=== PATIENT | female | born 1985 | race American Indian/Alaskan Native ===

== ENCOUNTER 2018-07-16 08:24 | Emergency (ER) | payer MEDICAID, OTHER ==
[2018-07-16 08:34] VITALS: BP 124/63
--- NOTE | 2018-07-16 10:11 | Emergency Department Report ---
ED General Adult HPI - General Chief complaint: Skin/Abscess/Foreign Body Stated complaint: SPIDER BITE/BACK Time Seen by Provider: 07/16/18 09:29 Source: patient Mode of arrival: Ambulatory Limitations: No Limitations - History of Present Illness Initial comments: Patient complains of a raised rash that appeared on her back this morning. Patient denies any wilderness contacts or fever. She states that the rash really itchy and at times painful. She states that she did have chickenpox as a child. She denies chest pain, shortness breath, or headache. -: Sudden Location: back Radiation: non-radiation Severity scale (0 -10): 3 Quality: dull Consistency: constant Improves with: none Worsens with: none Associated Symptoms: denies other symptoms Treatments Prior to Arrival: none - Related Data Previous Rx's Medication Instructions Recorded Last Taken Type Ibuprofen [Motrin] 800 mg PO TID PRN #20 tablet 02/18/13 Unknown Rx metroNIDAZOLE [Flagyl TAB] 500 mg PO BID #20 tablet 02/18/13 Unknown Rx Acetaminophen/Codeine [Tylenol 1 tab PO Q6H PRN #15 tab 07/16/18 Unknown Rx /Codeine # 3 tab] Acyclovir [Zovirax Tab] 400 mg PO Q8H #30 tab 07/16/18 Unknown Rx Sulfamethoxazole/Trimethoprim 2 each PO BID #28 tablet 07/16/18 Unknown Rx [Bactrim DS TAB] Allergies Allergy/AdvReac Type Severity Reaction Status Date / Time iron Allergy Rash Verified 07/16/18 08:25 ED Review of Systems ROS: Stated complaint: SPIDER BITE/BACK Other details as noted in HPI Comment: All other systems reviewed and negative Constitutional: denies: chills, fever Eyes: denies: eye pain, eye discharge, vision change ENT: denies: ear pain, throat pain Respiratory: denies: cough, shortness of breath, wheezing Cardiovascular: denies: chest pain, palpitations Endocrine: no symptoms reported Gastrointestinal: denies: abdominal pain, nausea, diarrhea Genitourinary: denies: urgency, dysuria, discharge Musculoskeletal: denies: back pain, joint swelling, arthralgia Skin: denies: rash, lesions Neurological: denies: headache, weakness, paresthesias Psychiatric: denies: anxiety, depression Hematological/Lymphatic: denies: easy bleeding, easy bruising ED Past Medical Hx - Past Medical History Previous Medical History?: No - Surgical History Past Surgical History?: Yes Additional Surgical History: KNEE - Social History Smoking Status: Never Smoker Substance Use Type: None - Medications Home Medications: Home Medications Medication Instructions Recorded Confirmed Last Taken Type Ibuprofen [Motrin] 800 mg PO TID PRN #20 tablet 02/18/13 Unknown Rx metroNIDAZOLE [Flagyl TAB] 500 mg PO BID #20 tablet 02/18/13 Unknown Rx Acetaminophen/Codeine [Tylenol 1 tab PO Q6H PRN #15 tab 07/16/18 Unknown Rx /Codeine # 3 tab] Acyclovir [Zovirax Tab] 400 mg PO Q8H #30 tab 07/16/18 Unknown Rx Sulfamethoxazole/Trimethoprim 2 each PO BID #28 tablet 07/16/18 Unknown Rx [Bactrim DS TAB] ED Physical Exam - General Limitations: No Limitations General appearance: alert, in no apparent distress - Head Head exam: Present: atraumatic, normocephalic - Eye Eye exam: Present: normal appearance, PERRL, EOMI - ENT ENT exam: Present: mucous membranes moist - Neck Neck exam: Present: normal inspection - Respiratory Respiratory exam: Present: normal lung sounds bilaterally. Absent: respiratory distress - Cardiovascular Cardiovascular Exam: Present: regular rate, normal rhythm. Absent: systolic murmur, diastolic murmur, rubs, gallop - Extremities Exam Extremities exam: Present: normal inspection - Back Exam Back exam: Present: normal inspection - Neurological Exam Neurological exam: Present: alert, oriented X3, CN II-XII intact. Absent: motor sensory deficit - Psychiatric Psychiatric exam: Present: normal affect, normal mood - Skin Skin exam: Present: warm, dry, intact, normal color, rash (vesicular rash to the mid back that appears to be a same age. There is mild erythema surrounding the rash. Rash is concerning for viral etiology) ED Course Vital Signs 07/16/18 08:33 Temperature 97.8 F Pulse Rate 73 Respiratory 20 Rate Blood Pressure 124/63 O2 Sat by Pulse 100 Oximetry ED Medical Decision Making - Medical Decision Making Discussed plan of care with patient Critical care attestation.: If time is entered above; I have spent that time in minutes in the direct care of this critically ill patient, excluding procedure time. ED Disposition Clinical Impression: Vesicular rash Disposition: DC-01 TO HOME OR SELFCARE Is pt being admited?: No Does the pt Need Aspirin: No Condition: Stable Instructions: Acute Rash (ED) Additional Instructions: return if worse Prescriptions: Sulfamethoxazole/Trimethoprim [Bactrim DS TAB] 2 each PO BID #28 tablet Acetaminophen/Codeine [Tylenol /Codeine # 3 tab] 1 tab PO Q6H PRN #15 tab PRN Reason: pain Acyclovir [Zovirax Tab] 400 mg PO Q8H #30 tab Referrals: [facility], [Provider Group] - 3-5 Days [facility] [Provider Group] - 3-5 Days Time of Disposition: 10:11
== END 2018-07-16 10:20 | disposition home or self-care (01) ==
LOC: ED 08:24
DX: R23.8 Other skin changes (principal)
CPT/HCPCS: 99282

== ENCOUNTER 2019-10-13 09:36 | Emergency (ER) | payer OTHER ==
[2019-10-13 09:43] VITALS: BP 140/82
--- NOTE | 2019-10-13 12:49 | Emergency Department Report ---
ED Lower Extremity HPI - General Chief Complaint: Laceration/Recheck/Suture Stated Complaint: LFT PINKY TOE LAC/PAIN Time Seen by Provider: 10/13/19 12:03 Source: patient Mode of arrival: Ambulatory Limitations: No Limitations - History of Present Illness Initial Comments: 33-year-old Afro[place] female presents emerged department complaining of left toe injury which she is accidentally hit against a bed rail resulting in a laceration of unknown type started late last night between 11 and 12. Initially she did not think the injury was bad until she located closer this morning and decided come to emergency department for further evaluation and treatment options reports no numbness or tingling or pain minimum bleeding. Injury: Toes: Left Type of Injury: laceration Place: home Severity: mild Improves With: nothing Worsens With: nothing Context: direct blow Associated Symptoms: ambulatory - Related Data Previous Rx's Medication Instructions Recorded Last Taken Type Ibuprofen [Motrin] 800 mg PO TID PRN #20 tablet 02/18/13 Unknown Rx metroNIDAZOLE [Flagyl TAB] 500 mg PO BID #20 tablet 02/18/13 Unknown Rx Acetaminophen/Codeine [Tylenol 1 tab PO Q6H PRN #15 tab 07/16/18 Unknown Rx /Codeine # 3 tab] Acyclovir [Zovirax Tab] 400 mg PO Q8H #30 tab 07/16/18 Unknown Rx Sulfamethoxazole/Trimethoprim 2 each PO BID #28 tablet 07/16/18 Unknown Rx [Bactrim DS TAB] Chlorhexidine Gluconate [Hibiclens] 10 ml TP BID #240 liquid 10/13/19 Unknown Rx cephALEXin [Keflex] 500 mg PO Q6HR #40 capsule 10/13/19 Unknown Rx traMADoL [Ultram] 50 mg PO Q6HR PRN #20 tablet 10/13/19 Unknown Rx Allergies Allergy/AdvReac Type Severity Reaction Status Date / Time iron Allergy Rash Verified 07/16/18 08:25 ED Review of Systems ROS: Stated complaint: LFT PINKY TOE LAC/PAIN Other details as noted in HPI Comment: All other systems reviewed and negative ED Past Medical Hx - Past Medical History Previous Medical History?: No - Surgical History Past Surgical History?: Yes Additional Surgical History: KNEE - Social History Smoking Status: Never Smoker Substance Use Type: None - Medications Home Medications: Home Medications Medication Instructions Recorded Confirmed Last Taken Type Ibuprofen [Motrin] 800 mg PO TID PRN #20 tablet 02/18/13 Unknown Rx metroNIDAZOLE [Flagyl TAB] 500 mg PO BID #20 tablet 02/18/13 Unknown Rx Acetaminophen/Codeine [Tylenol 1 tab PO Q6H PRN #15 tab 07/16/18 Unknown Rx /Codeine # 3 tab] Acyclovir [Zovirax Tab] 400 mg PO Q8H #30 tab 07/16/18 Unknown Rx Sulfamethoxazole/Trimethoprim 2 each PO BID #28 tablet 07/16/18 Unknown Rx [Bactrim DS TAB] Chlorhexidine Gluconate [Hibiclens] 10 ml TP BID #240 liquid 10/13/19 Unknown Rx cephALEXin [Keflex] 500 mg PO Q6HR #40 capsule 10/13/19 Unknown Rx traMADoL [Ultram] 50 mg PO Q6HR PRN #20 tablet 10/13/19 Unknown Rx ED Physical Exam - General Limitations: No Limitations General appearance: alert, in no apparent distress - Head Head exam: Present: atraumatic, normocephalic - Eye Eye exam: Present: normal appearance - ENT ENT exam: Present: mucous membranes moist - Neck Neck exam: Present: normal inspection - Respiratory Respiratory exam: Present: normal lung sounds bilaterally. Absent: respiratory distress - Cardiovascular Cardiovascular Exam: Present: regular rate, normal rhythm. Absent: systolic murmur, diastolic murmur, rubs, gallop - GI/Abdominal GI/Abdominal exam: Present: soft, normal bowel sounds - Extremities Exam Extremities exam: Present: normal inspection - Expanded Lower Extremity Exam Left 1 - Irregular flap laceration resulting in a degloving type injury of the toe with the skin appearing to be nonviable. Bleeding is controlled. Full range of motion of the toe - Back Exam Back exam: Present: normal inspection - Neurological Exam Neurological exam: Present: alert, oriented X3 - Psychiatric Psychiatric exam: Present: normal affect, normal mood - Skin Skin exam: Present: warm, dry, intact, normal color. Absent: rash ED Course Vital Signs 10/13/19 09:39 Temperature 98.2 F Pulse Rate 91 H Respiratory 16 Rate Blood Pressure 140/82 O2 Sat by Pulse 100 Oximetry - Procedure Description Procedures done: Left total procedure. The area was prepped and draped in aseptic fashion. The avulsed nonviable tissue was removed with skin nallely with no complication. The procedure was tolerated well no blood loss for range of motion of the toe remained intact. ED Lower Extremity MDM - Medical Decision Making 33-year-old female with toe injury resulting in partial degloving of the skin was the portion that was injured was removed with no complications. The wound was cleaned with copious saline and anti-microbial before being irrigated again and then dressed with aseptic bandage. Instructions were provided on wound management on the need to and also the need for the follow-up or when to return to the emergency department she expressed a full understanding tetanus shot was up-to-date provided a previous injury to the right upper leg which occurred about 5 weeks ago. She was in good spirits during the procedure and upon her discharge. Critical care attestation.: If time is entered above; I have spent that time in minutes in the direct care of this critically ill patient, excluding procedure time. ED Disposition Clinical Impression: Degloving injury of toe Disposition: DC-01 TO HOME OR SELFCARE Is pt being admited?: No Does the pt Need Aspirin: No Condition: Stable Instructions: Acute Wound Care (ED) Prescriptions: Chlorhexidine Gluconate [Hibiclens] 10 ml TP BID #240 liquid cephALEXin [Keflex] 500 mg PO Q6HR #40 capsule traMADoL [Ultram] 50 mg PO Q6HR PRN #20 tablet PRN Reason: Pain Referrals: [facility], [Primary Care Provider] - 3-5 Days [facility] [Provider Group] - 3-5 Days Forms: Work/School Release Form(ED)
== END 2019-10-13 13:12 | disposition home or self-care (01) ==
LOC: ED 09:36
DX: S99.822A Other specified injuries of left foot, initial encounter (principal); Z98.890 Other specified postprocedural states; Z79.2 Long term (current) use of antibiotics; Z79.899 Other long term (current) drug therapy; Z88.8 Allergy status to other drugs, medicaments and biological substances; W22.8XXA Striking against or struck by other objects, initial encounter; Y93.89 Activity, other specified; Y92.009 Unspecified place in unspecified non-institutional (private) residence as the place of occurrence of the external cause; Y99.8 Other external cause status
CPT/HCPCS: 99282